=== PATIENT | female | born 1980 | race Caucasian/White ===

== ENCOUNTER 2018-07-29 10:40 | Emergency (ER) | payer SELFPAY ==
[~2018-07-29] VITALS: Ht 157.5 cm; Wt 95.3 kg
[2018-07-29 13:25] VITALS: BP 140/77
== END 2018-07-29 13:25 | disposition home or self-care (01) ==
LOC: ED 10:40 → EDBD 10:40 → ED 13:25
DX: N92.6 Irregular menstruation, unspecified (principal); R51 Headache
CPT/HCPCS: 82962; Q0162